=== PATIENT | male | born 1955 | race Caucasian/White ===

== ENCOUNTER 2016-12-03 16:21 | Day surgery (SDC) | payer BC ==
--- NOTE | 2016-12-04 16:21 | ER ---
ADMIT: 12/03/2016 RM/LOC: [facility] MR#: [id number] [address] [facility] [id number] CHILO PEÑA [address] [place] [id number] Emergency Room Report SEX: M AGE: 61 : 1955 DATE: 12/03/2016 ADDENDUM: CHIEF COMPLAINT: Unable to swallow. HISTORY OF PRESENT ILLNESS: This is a 61-year-old who ate a pork sandwich at 11:30 today. He has not been able to swallow his own saliva since then. We did try glucagon here in the emergency room; it did not help. I did speak with Dr. Rooney at 1709 hours. He is coming in to do an EGD. IMPRESSION: Esophageal food bolus. MIRIAM Harley / Vivek Flynn MD / modl JOB #: [id number] CC: James Rooney MD, Attending Physician James Rooney MD, Family Physician
--- NOTE | 2016-12-06 11:03 | HP ---
ADMIT: 12/03/2016 RM/LOC: [facility] MR#: [id number] [address] [facility] [address] [place] [id number] CHILO PEÑA [address] [place] [id number] History and Physical SEX: M AGE: 61 : 1955 Corrected: 12/04/2016 0900 djs DATE OF SERVICE: HISTORY OF PRESENT ILLNESS: This is a 61-year-old healthy male seen in the ER for an esophageal meat impaction. He was eating pulled pork sandwich around 11:30 this morning. He had the sudden onset of dysphagia. He has had this in the past, but it has always passed with simply drinking liquids to pass it. He was unable to swallow his saliva since that occurred. He came to the ER with that complaint. He resides in [place] and is visiting here and was headed back home tonight. PAST MEDICAL HISTORY: Denies chronic illnesses with the exception of kidney stones. PRIOR SURGICAL HISTORY: Shoulder cyst excision. FAMILY HISTORY: Noncontributory. SOCIAL HISTORY: Denies smoking or significant alcohol intake. REVIEW OF SYSTEMS: A 10-point review of systems is performed and negative for any recent change with the exception of the dysphagia mentioned above. PHYSICAL EXAM: GENERAL: Chilo is alert, oriented, and in no acute distress. VITAL SIGNS: He is afebrile and his vital signs are stable. HEENT: Sclerae are anicteric. Cranial nerves are intact. NECK: Supple. Trachea is midline. LUNGS: Clear bilaterally. HEART: Regular rate and rhythm. ABDOMEN: Soft and nontender. EXTREMITIES: Neurovascularly intact x4. IMPRESSION: Esophageal meat impaction. PLAN: I have recommended proceeding with esophagogastroduodenoscopy and foreign body removal. I discussed the risks of that in detail with Chilo and he agrees to proceed. James Rooney MD/ thang JOB #: [id number] CC: James Rooney, Attending Physician James Rooney, Family Physician Corrected: 12/04/2016 0900 ilir
--- NOTE | 2016-12-06 11:03 | OR ---
ADMIT: 12/03/2016 RM/LOC: [facility] MR#: [id number] [address] [id number] CHILO PEÑA [address] [place] [id number] Operative/Delivery Room Report SEX: M AGE: 61 : 1955 SURGERY DATE: 12/03/2016 SURGEON: James Rooney MD PREOPERATIVE DIAGNOSIS: Esophageal meat impaction. POSTOPERATIVE DIAGNOSIS: Esophageal meat impaction. PROCEDURE: Esophagogastroscopy with removal of foreign body. ANESTHESIA: IV general. DESCRIPTION OF PROCEDURE: The patient was taken to the endoscopy suite and placed left side down on his hospital cart. A bite-block was placed and IV sedation was established. The upper endoscope was advanced through the oropharynx into the esophagus without difficulty. The scope was pushed under visualization to the mid esophagus where there was food. This was advanced to the obstructing piece of meat in the distal esophagus. With gentle manipulation, this was advanced across the gastroesophageal junction into the stomach. The remaining pieces of meat were likewise grasped and removed into the gastric lumen. There was inflammation at the GE junction, but no evidence of perforation. The remainder of the esophageal mucosa was otherwise unremarkable upon withdrawal of the scope. The patient tolerated the procedure well and transferred to the recovery area in stable condition. James Rooney MD/ thang JOB #: [id number] CC: James Rooney, Attending Physician James Rooney, Family Physician
== END 2016-12-03 19:25 | disposition home or self-care (01) ==
LOC: ER 16:21 → SSS 17:50
PROC: 0DC38ZZ Extirpation of Matter from Lower Esophagus, Via Natural or Artificial Opening Endoscopic (ICD-10-PCS; principal; 2016-12-03)
DX: T18.128A Food in esophagus causing other injury, initial encounter (principal); Z87.442 Personal history of urinary calculi; Z98.890 Other specified postprocedural states; X58.XXXA Exposure to other specified factors, initial encounter